=== PATIENT | female | born 1945 | race Caucasian/White ===

== ENCOUNTER → 2022-03-05 | Day surgery (SDC) | payer OTHER ==
[~2022-03-05] VITALS: Ht 165.1 cm; Wt 93.9 kg
[~2022-03-05] MED LIST: ACETAMINOPHEN I.V. 1000 MG 100 ML IV ONE; CEFAZOLIN 1 GM IVPB PREMIX 50 ML IV ONE; CEFAZOLIN SOD 1 GM/ ISO 50 ML PREMIX IV ONE; CEPH-548 PO; D5/0.45 NS 1,000 ML IV SCH; DESFLURANE 15 MIN GAS INH ONE; DEXAMETHASONE SOD PHOSPHATE 4 MG/ML VIAL IVP ONE; HYDROcodone/ACETAMIN 5-325 MG TAB (NORCO/ VICODIN) PO PRN; HYDROmorphone 1 MG/ML INJ. CARTRIDGE IVP PRN; HYDROmorphone 1 MG/ML INJ. CARTRIDGE ONE; LIDOCAINE 1% 10 MG/ML, 20 ML MDV INJ ONE; LR 1,000 ML IV SCH; LR 1,000 ML IV.SOLN IV ONE; MEPERIDINE HCL/PF 25 MG/ML DISP.SYRIN IVP PRN; METOCLOPRAMIDE HCL 10 MG/2 ML VIAL IVP PRN; MIDAZOLAM HCL 5 MG/5 ML VIAL IVP ONE; ONDANSETRON HCL 4 MG/2 ML VIAL IVP ONE; PROPOFOL 200MG/ 20ML VIAL (DIPRIVAN) IV ONE; ROCURONIUM BROMIDE 10 MG/ML (ZEMURON) IV ONE; SUGAMMADEX SODIUM 200 MG/2 ML VIAL IV ONE; fentaNYL CITRATE 250 MCG/5 ML AMP IV ONE; hydrALAZINE HCL 20 MG/ML VIAL IVP PRN
[2022-03-05] MEDS: HYDROmorphone 1 MG/ML INJ. CARTRIDGE IVP PRN ×2 (10:10→10:15)
[2022-03-05 10:25] VITALS: BP_SYST 136
== END | disposition home or self-care (01) ==
LOC: SDS 05:42
PROVIDERS: ATTEND Colon & Rectal Surgery
DX: K80.10 Calculus of gallbladder with chronic cholecystitis without obstruction (principal); K21.9 Gastro-esophageal reflux disease without esophagitis; E66.9 Obesity, unspecified; E66.01 Morbid (severe) obesity due to excess calories; I12.9 Hypertensive chronic kidney disease with stage 1 through stage 4 chronic kidney disease, or unspecified chronic kidney disease; N18.30 Chronic kidney disease, stage 3 unspecified; F32.5 Major depressive disorder, single episode, in full remission; Z79.899 Other long term (current) drug therapy; Z20.822 Contact with and (suspected) exposure to COVID-19
CPT/HCPCS: 36415 ×2; 47563; 74300; 88304; 87426; U0003; J3490; J0690; J1100; J2001; J2250; J2405; J2704; J3010; J1170; Q9967; J7120; C1727; J0131; 76000

== ENCOUNTER 2022-03-07 14:18 | Emergency (ER) | payer OTHER ==
[~2022-03-07] VITALS: Ht 165.1 cm; Wt 93.9 kg
[2022-03-07 14:20] VITALS: BP_SYST 152
[2022-03-07 15:26] LABS: BASOPHILS % (AUTO) 0.3 % (0.0-2.0); EOSINOPHILS # (AUTO) 0.1 K/uL (0.0-0.4); EOSINOPHILS % (AUTO) 1.8 % (0.0-4.0); HEMATOCRIT 38.9 % (36-48); LYMPHOCYTES # (AUTO) 1.3 K/uL (1.0-5.5); LYMPHOCYTES % (AUTO) 16.8 % (20.5-51.5); MEAN CORPUSCULAR VOLUME 94 fL (79.0-98.0); MONOCYTES # (AUTO) 0.7 K/uL (0.0-1.0); MONOCYTES % (AUTO) 9.2 % (1.7-9.3); NEUTROPHILS # (AUTO) 5.7 K/uL (1.8-7.7); NEUTROPHILS % (AUTO) 71.9 % (40.0-70.0); PLATELET COUNT (AUTO) 194 K/uL (130-430); RED BLOOD CELL COUNT(AUTO) 4.16 MIL/uL (4.2-6.2); RED CELL DISTRIBUTION WIDTH 13.7 % (9.0-15.0)
[2022-03-07 16:33] LABS: BILIRUBIN,URINE NEGATIVE (NEGATIVE); BLOOD, URINE NEGATIVE (NEGATIVE); CLARITY/URINE CLEAR (CLEAR); COLOR,URINE YELLOW (YELLOW); GLUCOSE,URINE NEGATIVE (NEGATIVE); KETONES,URINE NEGATIVE (NEGATIVE); LEUKOCYTE ESTERASE ,URINE TRACE (NEGATIVE); NITRITE, URINE NEGATIVE (NEGATIVE); PROTEIN URINE NEGATIVE (NEGATIVE); UROBILINOGEN,URINE 0.2 (0.2-1.0)
[2022-03-07 17:07] LABS: BARBITURATE, URINE NEGATIVE (NEG <=200); BENZODIAZEPINE, URINE NEGATIVE (NEG <=150); CANNABINOID, URINE NEGATIVE (NEG <=50); COCAINE, URINE NEGATIVE (NEG <=150); METHAMPHETAMINES SCREEN,URINE NEGATIVE (NEG <=500); OPIATE, URINE NEGATIVE (NEG <=100); PHENCYCLIDINE SCREEN,URINE NEGATIVE (NEG <=25); UR TRICYCLIC ANTIDEPRESSANTS NEGATIVE (NEG <=300); URINE AMPHETAMINE NEGATIVE (NEG <=500); URINE METHADONE NEGATIVE (NEG <=200); URINE OXYCODONE SCREEN NEGATIVE (NEG <=100); URINE PROPOXYPHENE SCREEN NEGATIVE (NEG <=300)
[2022-03-07 17:15] LABS: BACTERIA,URINE RARE /HPF (None Seen); RBC,URINE NONE SEEN /HPF (0-3)
[2022-03-07 17:16] LABS: MUCUS,URINE None Seen /LPF (None Seen)
[2022-03-07 18:26] LABS: ANION GAP 8 (5-15); CALCIUM 9.1 mg/dL (8.4-11.0); CHLORIDE 107 mmol/L (98-107); GLUCOSE 105 mg/dL (70-99); POTASSIUM 3.7 mmol/L (3.5-5.1); UREA NITROGEN, BLOOD 17 mg/dL (8-21)
[2022-03-07 18:29] LABS: ALANINE AMINOTRANSFERASE 54 U/L (12-78); ALBUMIN 3.2 g/dL (3.4-4.8); ASPARTATE AMINOTRANSFERASE 31 U/L (10-37); TOTAL BILIRUBIN 0.6 mg/dL (0.0-1.0)
[2022-03-07 18:31] LABS: ACETAMINOPHEN < 1 ug/mL (1-30); ALCOHOL, BLOOD < 3 mg/dL (<10)
[2022-03-07] MEDS ORDERED: iohexoL 350 mgI/mL, 100 ML INFUS..BTL IV ONE (18:47)
[2022-03-07] MEDS ORDERED: CEPH-548 PO (20:38)
[2022-03-07 21:25] VITALS: BP_SYST 139
== END 2022-03-07 21:23 | disposition home or self-care (01) ==
LOC: SED 14:18
DX: N30.00 Acute cystitis without hematuria (principal); R53.1 Weakness; Z79.899 Other long term (current) drug therapy
CPT/HCPCS: 99285; 70450; 71045; 80307; 80053; 82140; 82550; 85025; 87086; 84484; 36415; 71275; 81000; 76376; G0482; Q9967; G0480; 93005